=== PATIENT | male | born 1980 | race Caucasian/White ===

== ENCOUNTER 2016-11-14 22:28 | Emergency (ER) | payer MEDICAID ==
[~2016-11-14] VITALS: Ht 154.9 cm; Wt 96.5 kg
[2016-11-14 22:59] VITALS: Ht 154.9 cm; Wt 96.5 kg
[2016-11-15] MEDS ORDERED: IBUPROFEN 800 MG TAB PO ONE (04:30)
[2016-11-15] MEDS ORDERED: HYDROCODONE/APAP (5/325) TAB PO ONE (04:30)
--- NOTE | 2016-11-15 05:20 | RADRPT ---
PROCEDURE: XR Ankle. CLINICAL INDICATION: Left ankle pain following injury. TECHNIQUE: Three views of the left ankle were performed. COMPARISON: None. FINDINGS: The osseous structures demonstrate normal alignment and mineralization. No acute fracture or disloc ation is seen. The ankle mortise is intact. No periostitis or osteochondral lesion is identified. There is soft tissue swelling overlying the lateral and medial malleolus. IMPRESSION: Lateral and medial malleolar soft tissue edema. No acute fracture is identified. RPTAT: HH .Lida Barrios MD, MD Date Time Electronically viewed and signed by .Lida Barrios MD, on 11/15/2016 05:20 .G/
--- NOTE | 2016-11-15 05:22 | RADRPT ---
PROCEDURE: XR Knee. CLINICAL INDICATION: Left knee pain following injury. TECHNIQUE: 3 views of the left knee are available for review. COMPARISON: None available FINDINGS: The osseous structures demonstrate normal alignment and mineralization. No acute fracture or disloc ation is identified. There is no periostitis or osteochondral lesion seen. There is lateral soft ti ssue edema. IMPRESSION: Soft tissue edema seen laterally. No acute fracture identified. RPTAT: HH .Lida Barrios MD, MD Date Time Electronically viewed and signed by .Lida Barrios MD, MD on 11/15/2016 05:21 .G/
[2016-11-15] MEDS ORDERED: IBUP800T25 PO (05:39)
[2016-11-15 05:51] VITALS: BP 133/70; PULSE 70; RESP 18; TEMP 98.4
--- NOTE | 2016-11-18 14:17 | ERD ---
ER Documentation Chief Complaint Date/Time DATE: 11/18/16 TIME: 14:00 Chief Complaint S/P FALL LEFT KNEE PAIN AND SWELLING HPI This is a 36 year old male presenting to ER for left knee pain and swelling after fall earlier today. Patient states he was playing with his kids in his yard when he tripped and fell with his left knee extended. No audible pop. Patient immediately began having left medial and lateral knee pain after trip and fall. Patient reports 10/10 pain to left knee. No ankle or foot pain. No hip pain. No numbness/tingling or loss of sensation. No erythema or pain out of proportion. ROS All systems reviewed and are negative except as per history of present illness. Medications Home Meds Active Scripts Ibuprofen* (Motrin*) 800 Mg Tab, 800 MG PO Q6, #20 TAB Prov:RAQUEL CARRERONICOLE Oneal NP 11/15/16 Allergies Allergies: Coded Allergies: No Known Allergy (Unverified , 11/15/16) PMhx/Soc Medical and Surgical Hx: pt denies Medical Hx, pt denies Surgical Hx Hx Alcohol Use: Yes (OCCASSIONALLY) Hx Substance Use: No Hx Tobacco Use: Yes (4-5CIGS) Smoking Status: Current every day smoker Physical Exam Vitals Vital Signs Date Time Temp Pulse Resp B/P Pulse Ox O2 Delivery O2 Flow Rate FiO2 11/15/16 05:51 98.4 70 18 133/70 98 Room Air 11/14/16 22:59 98.6 92 18 139/73 97 Physical Exam Const: Alert, non toxic appearing Head: Atraumatic Eyes: Normal Conjunctiva ENT: Normal External Ears, Nose and Mouth. Neck: Full range of motion..~ No meningismus. Resp: Clear to auscultation bilaterally Cardio: Regular rate and rhythm, no murmurs Abd: Soft, non tender, non distended. Normal bowel sounds Skin: No petechiae or rashes Back: No midline or flank tenderness Ext: No cyanosis, or edema. limited mobility to left knee. Sensation fully intact. Pedal pulses 2+ bilaterally Neur: Awake and alert Psych: Normal Mood and Affect Results 24 hrs Current Medications Medications (Trade) Dose Ordered Sig/Mesfin Route PRN Reason Start Time Stop Time Status Last Admin Dose Admin Ibuprofen (Motrin) 800 mg ONCE ONCE PO 11/15/16 04:30 11/15/16 04:31 DC 11/15/16 05:07 Acetaminophen/ Hydrocodone Bitart (Tioga (5/325)) 1 tab ONCE ONCE PO 11/15/16 04:30 11/15/16 04:31 DC 11/15/16 05:07 Procedures/MDM Patient: NIELS CARLSON : 1980 Age: 36 Sex: M MR #: [id number] DOS: 11/15/16421 Ordering MD: SAMSON CARRERO NP Location: [facility] Room/Bed: PROCEDURE: XR Ankle. CLINICAL INDICATION: Left ankle pain following injury. TECHNIQUE: Three views of the left ankle were performed. COMPARISON: None. FINDINGS: The osseous structures demonstrate normal alignment and mineralization. No acute fracture or dislocation is seen. The ankle mortise is intact. No periostitis or osteochondral lesion is identified. There is soft tissue swelling overlying the lateral and medial malleolus. IMPRESSION: Lateral and medial malleolar soft tissue edema. No acute fracture is identified. Patient: NIELS CARLSON : 1980 Age: 36 Sex: M MR #: [id number] DOS: 11/15/16421 Ordering MD: SAMSON CARRERO NP Location: [facility] Room/Bed: PROCEDURE: XR Knee. CLINICAL INDICATION: Left knee pain following injury. TECHNIQUE: 3 views of the left knee are available for review. COMPARISON: None available FINDINGS: The osseous structures demonstrate normal alignment and mineralization. No acute fracture or dislocation is identified. There is no periostitis or osteochondral lesion seen. There is lateral soft tissue edema. IMPRESSION: Soft tissue edema seen laterally. No acute fracture identified. MDM: 36 year old male presents to ER after knee injury. Patient states he tripped and fell with left knee extended. Xray left knee reviewed by radiologist as soft tissue edema seen laterally. No acute fracture identified. X-ray left ankle reviewed by radiologist as lateral and medial malleolar soft tissue edema. No acute fracture is identified. Patient given ibuprofen and Tioga and states pain is tolerable. No neurovascular compromise. An marco antonio wrap was applied while in the ED. Low suspicion for acute fracture, dislocation or compartment syndrome. Patient is appropriate for outpatient management and will be given prescription for ibuprofen. Instructed patient to follow up with PCP in the next 2-3 days for reassessment. Return to ED for any new or worsening symptoms. Patient verbalizes understanding. All questions answered at discharge. Departure Diagnosis: Primary Impression: Knee injury Condition: Stable Patient Instructions: Treating Ankle Sprains, Knee Sprain: Collateral Ligaments Referrals: [facility] YOU HAVE RECEIVED A MEDICAL SCREENING EXAM AND THE RESULTS INDICATE THAT YOU DO NOT HAVE A CONDITION THAT REQUIRES URGENT TREATMENT IN THE EMERGENCY DEPARTMENT. FURTHER EVALUATION AND TREATMENT OF YOUR CONDITION CAN WAIT UNTIL YOU ARE SEEN IN YOUR DOCTORS OFFICE WITHIN THE NEXT 1-2 DAYS. IT IS YOUR RESPONSIBILITY TO MAKE AN APPOINTMENT FOR FOLOW-UP CARE. IF YOU HAVE A PRIMARY DOCTOR --you should call your primary doctor and schedule an appointment IF YOU DO NOT HAVE A PRIMARY DOCTOR YOU CAN CALL OUR PHYSICIAN REFERRAL HOTLINE AT IF YOU CAN NOT AFFORD TO SEE A PHYSICIAN YOU CAN CHOSE FROM THE FOLLOWING [facility] [address] [facility]. [facility] [address] [facility]. [facility] [address] [facility] [address] [facility] [address] [facility] [address] [facility]. [facility] [address] [facility]. [facility] YOU HAVE RECEIVED A MEDICAL SCREENING EXAM AND THE RESULTS INDICATE THAT YOU DO NOT HAVE A CONDITION THAT REQUIRES URGENT TREATMENT IN THE EMERGENCY DEPARTMENT. FURTHER EVALUATION AND TREATMENT OF YOUR CONDITION CAN WAIT UNTIL YOU ARE SEEN IN YOUR DOCTORS OFFICE WITHIN THE NEXT 1-2 DAYS. IT IS YOUR RESPONSIBILITY TO MAKE AN APPOINTMENT FOR FOLOW-UP CARE. IF YOU HAVE A PRIMARY DOCTOR --you should call your primary doctor and schedule and appointment IF YOU DO NOT HAVE A PRIMARY DOCTOR YOU CAN CALL OUR PHYSICIAN REFERRAL HOTLINE AT . IF YOU CAN NOT AFFORD TO SEE A PHYSICIAN YOU CAN CHOSE FROM THE FOLLOWING [facility] INSTITUTIONS: [facility] [address] [place] [address] [facility] [address] [place] [address] [facility] [address] [place] [address] [facility] Care 7 a.m.- 11 p.m. Every Day of the Week NO APPOINTMENT OR AUTHORIZATION NEEDED Additional Instructions: Call your primary care doctor TOMORROW for an appointment during the next 2-3 days.See the doctor sooner or return here if your condition worsens before your appointment time. Return to ED for any high fever, chest pain, difficulty breathing, shortness breath, wheezing, vomiting, diarrhea, abdominal pain or any new or worsening symptoms. SAMSON CARRERO NP November 18, 2016 14:10
== END 2016-11-15 05:54 | disposition home or self-care (01) ==
LOC: FTE 22:28
DX: S89.92XA Unspecified injury of left lower leg, initial encounter (principal); F17.210 Nicotine dependence, cigarettes, uncomplicated; W01.0XXA Fall on same level from slipping, tripping and stumbling without subsequent striking against object, initial encounter; Y92.9 Unspecified place or not applicable
CPT/HCPCS: 73562; 73610; Z7610